=== PATIENT | female | born 1995 | race Caucasian/White ===

== ENCOUNTER 2016-04-15 19:47 | Emergency (ER) | payer BC ==
[~2016-04-15] VITALS: Ht 170.2 cm; Wt 86.2 kg
[2016-04-15 19:47] VITALS: BP 145/78; PULSE 110; RESP 16; TEMP 98.5; O2SAT 95
[2016-04-15] MEDS ORDERED: LORazepam 1 MG TABLET PO ONE ×2 (20:30→20:45)
[2016-04-15] MEDS ORDERED: IBUPROFEN 600 MG TABLET PO ONE ×2 (20:30→20:45)
[2016-04-15 21:31] LABS: BILIRUBIN,URINE NEGATIVE (NEGATIVE); BLOOD, URINE NEGATIVE (NEGATIVE); CLARITY/URINE CLEAR (CLEAR); COLOR,URINE YELLOW (YELLOW); GLUCOSE,URINE NEGATIVE (NEGATIVE); KETONES,URINE NEGATIVE (NEGATIVE); LEUKOCYTE ESTERASE ,URINE 1+ (NEGATIVE); NITRITE, URINE NEGATIVE (NEGATIVE); PROTEIN URINE NEGATIVE (NEGATIVE); UROBILINOGEN,URINE 0.2 (0.2-1.0)
[2016-04-15 21:46] LABS: BACTERIA,URINE FEW /HPF (None Seen); MUCUS,URINE None Seen /LPF (None Seen); RBC,URINE NONE SEEN /HPF (0-3)
[2016-04-15 22:54] VITALS: BP 136/84; PULSE 97; RESP 18; TEMP 98.5; O2SAT 100
== END 2016-04-15 22:16 | disposition home or self-care (01) ==
LOC: SED 19:47
DX: S16.1XXA Strain of muscle, fascia and tendon at neck level, initial encounter (principal); N39.0 Urinary tract infection, site not specified; R03.0 Elevated blood-pressure reading, without diagnosis of hypertension; J45.909 Unspecified asthma, uncomplicated; Z98.890 Other specified postprocedural states; V89.2XXA Person injured in unspecified motor-vehicle accident, traffic, initial encounter; Y93.89 Activity, other specified; Y99.8 Other external cause status; Y92.89 Other specified places as the place of occurrence of the external cause
CPT/HCPCS: 72125-TC; 81000-TC; 87086; 99285